=== PATIENT | female | born 2000 | race African-American/Black ===

== ENCOUNTER 2021-09-11 20:42 | Emergency (ER) | payer SELFPAY ==
[~2021-09-11] VITALS: Ht 167.6 cm; Wt 88.5 kg
--- NOTE | 2021-09-11 21:17 | NUR ---
BIBFRIEND C/O CP FOR THE PAST WEEK, LEFT ARM PAIN, AND EPISODE OF PALPIATIONS AT 1500 XTODAY. PT AWAKE AND ALERT IN NO DISTRESS. PLACED ON [employer] AND PULSE OX AND V/S WNL.
[2021-09-11] MEDS ORDERED: ASPIRIN 81 MG TAB.CHEW PO ONE (21:30)
--- NOTE | 2021-09-11 21:30 | NUR ---
20G LINE ESTABLISHED AT LOCATED WITHIN [facility]. BLOOD DRAWN AND SENT TO LAB.
[2021-09-11] MEDS ORDERED: ASPIRIN 81 MG TAB.CHEW ONE (21:33)
--- NOTE | 2021-09-11 21:40 | NUR ---
HEEL PADDER AT BEDSIDE. WAIVER SIGNED AND PLACED IN PT CHART.
[2021-09-11 21:48] LABS: BASOPHILS % (AUTO) 0.6 % (0.0-2.0); HEMATOCRIT 40 % (33-45); HEMOGLOBIN 13.5 g/dL (11.5-14.8); LYMPHOCYTES # (AUTO) 2.3 K/uL (0.8-4.8); LYMPHOCYTES % (AUTO) 36.9 % (20.0-44.0); MEAN CORPUSCULAR HGB CONC 34 g/dl (31.0-36.0); MEAN CORPUSCULAR VOLUME 88 fL (82-100); MONOCYTES # (AUTO) 0.5 K/uL (0.1-1.30); MONOCYTES % (AUTO) 7.7 % (2.0-12.0); NEUTROPHILS # (AUTO) 3.4 K/uL (1.8-8.9); NEUTROPHILS % (AUTO) 53.8 % (43.0-81.0); PLATELET COUNT (AUTO) 305 K/uL (150-450); RED BLOOD CELL COUNT(AUTO) 4.56 MIL/uL (4.0-5.2); WHITE BLOOD COUNT (AUTO) 6.3 K/uL (4.3-11.0)
[2021-09-11 22:10] LABS: CALCIUM, SERUM 9.4 mg/dL (8.5-10.1); CARBON DIOXIDE 26 mmol/L (21-32); CHLORIDE 104 mmol/L (98-107); CREATININE 0.8 mg/dL (0.6-1.3); GLUCOSE 83 mg/dL (74-106); POTASSIUM 3.6 mmol/L (3.5-5.1); SODIUM SERUM 138 mmol/L (136-145); UREA NITROGEN, BLOOD 15 mg/dL (7-18)
[2021-09-11 22:21] LABS: ALANINE AMINOTRANSFERASE 14 U/L (12-78); ALBUMIN 4.6 g/dL (3.4-5.0); ALKALINE PHOSPHATASE 53 U/L (46-116); ASPARTATE AMINOTRANSFERASE 20 U/L (15-37); BILIRUBIN,DIRECT 0.2 mg/dL (0.0-0.2); BILIRUBIN,TOTAL 0.8 mg/dL (0.2-1.0); TOTAL PROTEIN, SERUM 8.5 g/dL (6.4-8.2)
--- NOTE | 2021-09-11 23:35 | NUR ---
LAB AT BEDSIDE FOR KIESHA KARIMI
--- NOTE | 2021-09-12 01:17 | NUR ---
Patient discharged to home in stable condition. Written and verbal after care instructions given. Patient verbalizes understanding of instruction. IV line removed and PT ambulatory with steady gait.
[2021-09-12 01:34] VITALS: BP 118/86
== END 2021-09-12 01:20 | disposition home or self-care (01) ==
LOC: ER 20:49
DX: R07.89 Other chest pain (principal); R20.2 Paresthesia of skin; Z60.2 Problems related to living alone
CPT/HCPCS: 36415; 71045-TC; 80048-TC; 80076-TC; 84484-TC; 85025-TC